=== PATIENT | male | born 1955 | race Caucasian/White ===

== ENCOUNTER 2019-10-26 17:08 | Emergency (ER) | payer OTHER ==
--- NOTE | 2019-10-26 17:46 | CT ---
CT BRAIN 10/26/19 PROVIDED CLINICAL HISTORY: Fall. FINDINGS: The ventricular system appears normal in size and morphology. There is no evidence for intracranial h emorrhage or mass effect. The extracranial soft tissues and osseous structures demonstrate an unremar kable CT appearance with the exception of mucosal thickening involving the sphenoid sinus. IMPRESSION: No evidence for intracranial hemorrhage or mass effect. POS: ROSALIND
--- NOTE | 2019-10-26 18:06 | RAD ---
RADIOGRAPH CHEST AND RIGHT RIBS 4 VIEW: DATE: 10/26/2019 HISTORY: 63-year-old male with acute traumatic right rib pain due to fall FINDINGS: The thoracic aorta is tortuous and ectatic. There is no evidence of airspace density, pulmonary edema , or pneumothorax. The lateral costophrenic angles are not effaced. No displaced acute right rib fracture is identified, although the osteopenia decreases the sensitivity. No cardiomegaly. IMPRESSION: 1) No acute pulmonary findings. 2) ectasia of thoracic aorta. 3) no displaced right rib fracture identified
--- NOTE | 2019-10-26 18:07 | RAD ---
Radiograph thoracic spine 3 views: HISTORY: 63-year-old male with acute traumatic mid back pain due to fall. FINDINGS: Multilevel mild and mild to moderate discogenic degenerative changes throughout the thoracic spine, e specially lower thoracic spine. Exaggerated kyphosis at lower thoracic spine. No high-grade vertebral body loss of height. Diffuse osteopenia. IMPRESSION: 1. Thoracic spondylosis. 2. No compression fracture identified.
== END 2019-10-26 18:42 | disposition home or self-care (01) ==
LOC: ERS 17:08
DX: S09.90XA Unspecified injury of head, initial encounter (principal); E03.9 Hypothyroidism, unspecified; I10 Essential (primary) hypertension; E78.5 Hyperlipidemia, unspecified; E78.00 Pure hypercholesterolemia, unspecified; M54.6 Pain in thoracic spine; R07.81 Pleurodynia; R07.2 Precordial pain; W17.89XA Other fall from one level to another, initial encounter
CPT/HCPCS: 70450; 72072